=== PATIENT | female | born 1985 | race Caucasian/White ===

== ENCOUNTER → 2016-11-05 | Day surgery (SDC) | payer OTHER ==
--- NOTE | 2016-11-09 14:05 | PATH ---
Cytology Non-Gynecological Report Patient Name: ALBERTO SANFORD [facility]. Rec. #: [id number] /Age/Gender: 1985 (Age: 30) / F Account: [id number] Location: RADIOLOGY Taken: 11/05/2016 Received: 11/05/2016 Reported: 11/09/2016 Physicians: Yash Gordon MD Specimen(s) Received LEFT THYROID FNA Clinical History Left thyroid nodule, 3.22 x 1.97 x 2.72 cm Final Diagnosis THYROID GLAND, LEFT LOBE, US GUIDED FINE NEEDLE ASPIRATION BIOPSY: SATISFACTORY FOR EVALUATION. NO MALIGNANT CELLS IDENTIFIED. CONSISTENT WITH NODULAR GOITER WITH CYSTIC CHANGE (BENIGN FOLLICULAR NODULE, B[place] CATEGORY II, BENIGN), SEE COMMENT. Comment: The smears and the cell block show clusters of bland appearing follicular epithelial cells arranged in mixed macro- and microfollicles and flat sheets. Macrophages are present indicative of cystic change. Colloid is present. Electronically Signed Devon Reed M.D. Gross Description Received are four air dried smears, four smears in 95% alcohol, and 20 cc of bloody fluid in formalin. Four diff-quik stained slides, four Pap stained slides and one cell block are made.
== END | disposition home or self-care (01) ==
LOC: JRADIR 08:42
PROVIDERS: ATTEND Family Medicine
PROC: 0G9G3ZX Drainage of Left Thyroid Gland Lobe, Percutaneous Approach, Diagnostic (ICD-10-PCS; principal; 2016-11-05)
PROC: BG44ZZZ Ultrasonography of Thyroid Gland (ICD-10-PCS; 2016-11-05)
DX: E04.1 Nontoxic single thyroid nodule (principal)
CPT/HCPCS: 76942; 88173; 88305-TC